=== PATIENT | female | born 1965 | race Caucasian/White ===

== ENCOUNTER 2024-06-21 09:12 | Outpatient (CLI) | payer OTHER | END 2024-06-21 09:13 | disposition home or self-care (01) | LOC: MRI 09:12 | PROVIDERS: ATTEND Nurse Practitioner Family | DX: R10.84 Generalized abdominal pain (principal); M70.30 Other bursitis of elbow, unspecified elbow; I42.2 Other hypertrophic cardiomyopathy; I51.7 Cardiomegaly | CPT/HCPCS: 74181; 76376 ==